=== PATIENT | male | born 1930 | race Native Hawaiian/Other Pacific Islander ===

== ENCOUNTER 2019-10-27 13:07 | Emergency (ER) | payer OTHER ==
[~2019-10-27] VITALS: Ht 182.9 cm; Wt 77.1 kg
[2019-10-27 13:26] LABS: PLATELET COUNT 241 K/uL (142-355)
[2019-10-27 13:34] LABS: POTASSIUM 3.7 mmol/L (3.6-5.2)
[2019-10-27 14:41] VITALS: BP 115/69; TEMP 97.5
[2019-10-27] MEDS ORDERED: ASPIRIN ADULT L81 M2 PO (17:52)
[2019-10-27] MEDS ORDERED: FLUDROCORT0.1 MG PO (17:53)
[2019-10-27] MEDS ORDERED: OMEPRAZOLE DR40 MG PO (17:54)
[2019-10-27] MEDS ORDERED: FLUOXETINE40 MG PO (17:54)
[2019-10-27] MEDS ORDERED: MIRTAZAPINE7.5 MG PO (17:55)
[2019-10-27] MEDS ORDERED: MIDO10TAB PO (17:56)
[2019-10-27] MEDS ORDERED: LOPE2CAP17 PO (17:58)
[2019-10-27] MEDS ORDERED: LORA2INJ21 IM (18:02)
== END 2019-10-27 14:41 | disposition other institution (70) ==
LOC: ED 13:07
PROVIDERS: Family Medicine
DX: F03.91 Unspecified dementia, unspecified severity, with behavioral disturbance (principal); Z04.6 Encounter for general psychiatric examination, requested by authority
CPT/HCPCS: 80053; 81000; 85027; 93005; 99283; 99285